=== PATIENT | female | born 1970 | race Caucasian/White ===

== ENCOUNTER → 2018-07-07 13:13 | Outpatient (CLI) | payer MEDICAID, SELFPAY ==
--- NOTE | 2018-07-07 13:22 | MRI_ITS ---
STUDY: MRI BRAIN WITH AND WITHOUT CONTRAST REASON FOR EXAM: Female, 47 years old. Chronic headaches TECHNIQUE: Standardized multiplanar fat and water weighted pulse sequences were obtained. 6 ml of Gadavist contrast material was administered intravenously for the contrast portion of the examination. COMPARISON: None. FINDINGS: Normal size of the ventricles and extra-axial spaces for the patient's age. Minor periventricular white matter ischemic change without evidence for acute infarct. Focus of gliosis in the vicinity of the genu of the right internal capsule consistent with old lacunar infarct Normal bilateral basal ganglia. Normal thalami. There is no extra-axial fluid accumulation. Normal flow voids within the major intracranial circulation suggesting patency by spin echo criteria. Normal venous enhancement. There is no enhancing intra-axial or extra-axial abnormality. Normal sella turcica, pituitary gland, infundibular stalk, optic chiasm and hypothalamus. Normal tectal plate and pineal gland. Normal midbrain, claire and medulla. Normal cerebellum. Normal basal cisterns. Normal bilateral temporal bones. Normal bilateral internal auditory canals. No demonstrated orbital abnormality, within the constraints of a routine brain study. Normal visualized paranasal sinuses. Normal calvarium and skull base. Normal visualized soft tissue structures. Normal visualized upper cervical spine. MRI/Brain W/WO Contrast IMPRESSION: Minor periventricular white matter ischemic changes without evidence for acute infarct Findings which may be consistent with old lacunar infarct of the genu of the right internal capsule Electronically Signed: Zion Wagner MD at 16:11 EST , Service support ,
--- OUTSIDE RECORDS SUMMARY | 2018-09-11 09:47 | XMS RPT_ITS ---
:1970 Author Organization [facility] Care Team Providers Name Role Phone RUBI VIDES MD, JR. Attending Unavailable ALONZO GUEVARA, DR. LESA Mar Primary Care Unavailable RUBI VIDES MD, JR. Attending Unavailable ALONZO GUEVARA, DR. LESA Mar Primary Care Unavailable RUBI VIDES MD, JR. Attending Unavailable ALONZO GUEVARA, DR. LESA Mar Primary Care Unavailable Tommy Connell Attending Unavailable Tommy Connell Referring Unavailable LESA ROSADO Primary Lasha Unavailable PROBLEMS PROBLEMS No Problem Records FoundPROCEDURES PROCEDURES No Procedure Records FoundRESULTS RESULTS BRAIN W/WO CONTRAST Observed: 07/07/2018 Status: F Source: [place] 1:22 PM [facility] REPOSITORY [facility] Imaging Services [address] [place] [id number] Brain W/WO Contrast MR#: [id number] Acct: [id number] Name: MAEVE MAN Rep #: [id number] : 1970 F 47 From: Zion Wagner MD PCP: Lesa Rosado MD Status: REG CLI Study: Brain W/WO Contrast Date of Exam: 07/07/18 Exam# [id number] Ordering Dr: Tommy Connell MD STUDY: MRI BRAIN WITH AND WITHOUT CONTRAST REASON FOR EXAM: Female, 47 years old. Chronic headaches TECHNIQUE: Standardized multiplanar fat and water weighted pulse sequences were obtained. 6 ml of Gadavist contrast material was administered intravenously for the contrast portion of the examination. COMPARISON: None. FINDINGS: Normal size of the ventricles and extra-axial spaces for the patient's age. Minor periventricular white matter ischemic change without evidence for acute infarct. Focus of gliosis in the vicinity of the genu of the right internal capsule consistent with old lacunar infarct Normal bilateral basal ganglia. Normal thalami. There is no extra-axial fluid accumulation. Normal flow voids within the major intracranial circulation suggesting patency by spin echo criteria. Normal venous enhancement. There is no enhancing intra-axial or extra-axial abnormality. Normal sella turcica, pituitary gland, infundibular stalk, optic chiasm and hypothalamus. Normal tectal plate and pineal gland. Normal midbrain, claire and medulla. Normal cerebellum. Normal basal cisterns. Normal bilateral temporal bones. Normal bilateral internal auditory canals. No demonstrated orbital abnormality, within the constraints of a routine brain study. Normal visualized paranasal sinuses. Normal calvarium and skull base. Normal visualized soft tissue structures. Normal visualized upper cervical spine. MRI/Brain W/WO Contrast IMPRESSION: Minor periventricular white matter ischemic changes without evidence for acute infarct Findings which may be consistent with old lacunar infarct of the genu of the right internal capsule Electronically Signed: Zion Wagner MD at 16:11 EST , Service support , CC: Lesa Rosado MD; Tommy Connell MD Mailing Jogger: Signed MRI BRAIN W/ + W/O Observed: 10/23/2017 Status: F Source: [place] CONTRAST 1:18 PM [facility] ORIGINAL MRI BRAIN W/ + W/O CONTRAST Clinical Statement: TUMOR PITUITARY. TECHNIQUE: Multiplanar, multisequence imaging of the brain was performed before and after the administration of IV contrast. COMPARISON: None. FINDINGS: The pituitary gland is normal in size and homogeneous in signal intensity on the precontrast images. Postcontrast images demonstrate a 4.7 mm diameter hypoenhancing focus slightly LEFT of midl ine.. There is no suprasellar or parasellar mass. The infundibulum, optic chiasm, suprasellar cistern, bilateral cavernous sinuses and cavernous carotid artery flow voids are normal. The sphenoid sinuses are normally pneumatized. There is no mass, mass-effect, or abnormal extra-axial fluid collection. There is no abnormal brain parenchymal or leptomeningeal enhancement. Scattered FLAIR hyperintensities in the LEFT frontal white matter are nonspecific. A FLAIR hyperintensity at the tendon of the internal capsule on the RIGHT demonstrates a punctate focus of central diffusion restriction. The ventricles are normal in size, shape and position. There are normal signal voids in the larger intracranial vessels. The paranasal sinuses and mastoid air cells are clear. The marrow signal pattern is within normal limits. IMPRESSION: 1. 3.5 mm hypoenhancing focus posteriorly in the pituitary gland. A cystic microadenoma or Rathke's cleft cyst are the main considerations. One year follow-up MRI brain with and without contrast, pituit christopher protocol is recommended. 2. Nonspecific FLAIR hyperintensities. No new or enhancing lesions. Interpreted By: Benoit Gee Preliminary Report By: Benoit Gee Electronically Signed By: Benoit Gee Dictated Date: 10/23/2017 2:34:41 PM Prelim Date: 10/23/2017 2:34:41 PM Sign Date: 10/23/2017 2:42:28 PM ALLERGIES ALLERGIES No Allergies Records FoundENCOUNTERS ENCOUNTERS ADMIT/DISCHARGE ACCOUNT NUMBER ADMITTING ENCOUNTER LOCATION SOURCE CLASS 07/07/2018 [id number] Ambulatory [facility] ding:MRI Repository 10/23/2017/10/24/19 [id number] Ambulatory [address] ding:[facility] Repository 10/22/2017 [id number] Ambulatory BBuilding:RA [facility] Repository 10/21/2017/10/22/[id number] ding:[facility] Repository PAYERS PAYERS ENCOUNTER GUARANTOR PAYER SUBSCRIBER SOURCE 07/07/2018 MAEVE [id number] Insurance:GODWIN MANDOB: [id number]: [facility] [id number]: 419 [id number] [phone] (HP) Date:[id number] [address] [place] [address] 51974MO: 07/07/2018 Secondary NOT GIVENUNK [place] Insurance:SELF PAY [facility] Number: Effective Repository Date:2018-07-01 10/23/2017 [facility]EVE Tinsley [facility]WIN MANDOB: [facility] [id number] Repository [facility] Number: [address] [facility], [place] [id number] [place] [address]~[email or web address] Date:2017-10-23Tel: [phone] Sandy: [phone] [phone] (HP)Tel: [phone] (HP)Tel: Name:[address] [place] [address] (WP) (ZX) [phone]: 10/22/2017 MAEVE Tinsley [facility]ins[facility]: Insurance:GODWIN MANDOB: [facility] [id number] [facility] [id number] [facility]ository [facility] Number: [address] [facility], [place] [id number] [place] [address]~[email or web address] Date:2017-10-22Tel: [phone] ADAIRSasha: [phone] (HP)Tel: [phone] (HP)Tel: Name:[address] [place] [address] (WP) (WP) [phone]: 10/21/2017 MAEVE Tinsley Primary MAEVE Tinsley [facility]: [facility]WIN [facility] [id number] [facility] [id number] Repository [facility] Number: 4 [facility] [place] [id number] [address]~[email or web address] Date:2017-10-07Tel: [phone]) Sandy: [phone] ()Tel: [phone] ()Tel: Name:SAAD Carrasco [address], [place] (WP) (FN) [phone]:
== END ==
PROVIDERS: Family Provider Family Medicine; PCP Family Medicine; Referring Provider Psychiatry & Neurology Neurology; Visit Provider Psychiatry & Neurology Neurology
DX: R51 Headache (principal)
CPT/HCPCS: 70553

== ENCOUNTER → 2018-11-17 09:19 | Outpatient (CLI) | payer MEDICAID, SELFPAY ==
[2018-11-17 10:15] LABS: Follicle Stimulating Hormone 17.1 mIU/mL; Prolactin 11.2 ng/mL; Thyroid Stim Hormone (TSH) 1.93 uIU/mL (0.358-3.74)
[2018-11-19 12:23] LABS: Adrenocorticotropic Hormone 14.1 pg/mL (7.2-63.3); Growth Hormone 0.1 ng/mL (0.0-10.0)
== END ==
PROVIDERS: Family Provider Family Medicine; PCP Family Medicine; Referring Provider Clinical Nurse Specialist Acute Care; Visit Provider Clinical Nurse Specialist Acute Care
DX: E23.6 Other disorders of pituitary gland (principal)
CPT/HCPCS: 36415; 82024; 83001; 83002; 83003; 84146; 84443

== ENCOUNTER → 2019-05-13 09:50 | Outpatient (CLI) | payer MEDICAID, SELFPAY ==
[2019-05-13 10:56] LABS: Absolute Lymphocyte Count 1.37 X10^3/uL (0.83-4.51); Absolute Neutrophil Count 5.9 X10^3/uL (2.0-7.7); Basophil# 0.08 X10^3/uL; Eosinophil# 0.18 X10^3/uL; Eosinophils% 2.2 % (0-5); Lymphocyte # 1.37 X10^3/ul (4.0); Lymphocyte % 16.7 % (19-41); Mean Corp Hgb Conc 32.6 g/dL (32-36); Mean Corpuscular Hgb 29.9 pg (27.0-32.0); Mean Corpuscular Volume 91.7 fL (81-99); Mean Platelet Vol. 12.8 fl (6.2-12.0); Monocyte% 8.5 % (0-10); NRBC Flagged by Analyzer 0 % (0-5); Neutrophil # 5.87 X10^3/uL (2.7-7.7); Neutrophil % 71.4 % (47-70); Platelet Count 182 K/mm3 (150-450); RBC Distribution Width CV 13.5 % (11.6-14.6); RBC Distribution Width SD 45.6 fl (35.1-43.9); Red Blood Count 4.69 M/mm3 (4.2-5.4); White Blood Count 8.2 K/mm3 (4.4-11.0)
[2019-05-13 11:32] LABS: Anion Gap 8 (5-15); BUN 8 mg/dL (7-18); BUN/Creat Ratio 10.8 RATIO (10-20); Calcium,Total 8.9 mg/dL (8.5-10.1); Chloride 108 mmol/L (98-107); Cholesterol 214 mg/dL (200); Creatinine, Serum 0.74 mg/dL (0.55-1.02); EST Glomerular Filtration Rate 88 mL/min (>60); Est Glom Filt Rate - Afr Amer 107 mL/min (>60); Glucose 80 mg/dL (74-106); High Density Lipoprotein 50 mg/dL; Potassium 3.8 mmol/L (3.5-5.1); Sodium Level 142 mmol/L (136-145); Thyroid Stim Hormone (TSH) 0.95 uIU/mL (0.358-3.74); Triglycerides 102 mg/dL; Very Low Density Lipoprotein 20 mg/dL (5-40)
== END ==
PROVIDERS: Family Provider Family Medicine; PCP Family Medicine; Referring Provider Nurse Practitioner Family; Visit Provider Nurse Practitioner Family
DX: E78.5 Hyperlipidemia, unspecified (principal); R42 Dizziness and giddiness
CPT/HCPCS: 36415; 80048; 80061; 84443; 85025

== ENCOUNTER 2019-05-30 10:00 | Outpatient (RCR) | payer MEDICAID, SELFPAY ==
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
--- NOTE | 2019-09-12 15:56 | HP.PT.NRP ---
MAEVE MAN was seen in my office for initial evaluation on 05/17/19. The following Plan of Care was established for this patient: Initial Frequency: 2x /Week Initial Duration: 4 Weeks Patient/Client Instruction: Educate patient on: Condition, Plan of Care For the Purpose of:: To improve muscle performance and motor function, To improve ability to perform ADL's, To increase tolerance to activity/condition/position, To improve performance and independence with ADL's, To decrease level of supervision to perform tasks, To improve gait and locomotor functions, To improve balance, To improve safety with gait Therapeutic Exercise to Include: Strength training, Gait and locomotor training, Active ROM For the Purpose of:: To improve nutrient delivery to tissue, To improve muscle performance and motor function, To improve ability to perform ADL's, To increase tolerance to activity/condition/position, To decrease level of supervision to perform tasks, To improve ability of physical actions for home/community/work/leisure This patient was last seen in our office 05/30/19. Pertinent comments regarding their Physical therapy will appear below: ANTHONY PT. Pt did not come for her follow up balance eval. At this point I will be discontinuing this patient from physical therapy. I would be happy to see this patient again in the future if found appropriate by the physician. Thank you! Pam Spangler, MPT
== END 2019-05-30 19:00 | disposition home or self-care (01) ==
LOC: PT 10:00
PROVIDERS: Family Provider Family Medicine; PCP Family Medicine; Referring Provider Nurse Practitioner Family; Visit Provider Nurse Practitioner Family
DX: R42 Dizziness and giddiness (principal)
CPT/HCPCS: 97162

== ENCOUNTER → 2021-03-08 11:15 | Outpatient (CLI) | payer MEDICAID, SELFPAY ==
[2021-03-28 14:04] LABS: Acetylcholine Receptor Binding < 0.03 nmol/L (0.00-0.24)
[2021-03-28 14:05] LABS: ACHR AB Modulating <12 % (0-20); ACHR Recep AB, Blocking 4 % (0-25)
== END ==
PROVIDERS: PCP Family Medicine; Visit Provider Psychiatry & Neurology Neurology
DX: H53.2 Diplopia (principal)
CPT/HCPCS: 36415; 83519; 84238